=== PATIENT | female | born 1975 ===

== ENCOUNTER 2016-11-07 08:57 | Emergency (ER) | payer OTHER ==
[2016-11-07 09:21] VITALS: BP 127/90; PULSE 88; TEMP 98.4; O2SAT 97
--- NOTE | 2016-11-07 09:28 | C.PDOC ---
History Of Present Illness Pt is a 41 yr old female who is c/o a lump under her right jaw for almost 3 days. No fever. No cough. She did not try any medications for her symptoms. Pt has had similar with lump under the jaw in the past--about 4 months. She has pain in the area when she swallows. On a 1-10 scale, pain is a 7. 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 Time Seen by Provider: 11/07/16 09:17 Chief Complaint (Nursing): ENT Problem Past Medical History Reviewed: Historical Data, Nursing Documentation, Vital Signs Vital Signs: Last Vital Signs Temp 98.4 F 11/07/16 09:02 Pulse 88 11/07/16 09:02 Resp 19 11/07/16 09:02 BP 127/90 11/07/16 09:02 Pulse Ox 97 11/07/16 09:34 - Medical History PMH: HTN, Hyperthyroidism, Hypothyroidism, Migraine Family History: States: Diabetes, Hypertension - Social History Hx Tobacco Use: No Hx Alcohol Use: No Hx Substance Use: No - Immunization History Hx Tetanus Toxoid Vaccination: No Hx Influenza Vaccination: No Hx Pneumococcal Vaccination: No Review Of Systems Except As Marked, All Systems Reviewed And Found Negative. Constitutional: Negative for: Fever Cardiovascular: Negative for: Chest Pain Respiratory: Negative for: Shortness of Breath Gastrointestinal: Negative for: Vomiting, Abdominal Pain Physical Exam - Physical Exam Appears: Well, Non-toxic, No Acute Distress Skin: Normal Color, Warm, Dry Head: Atraumatic, Normacephalic Eye(s): bilateral: Normal Inspection, EOMI Ear(s): Bilateral: Normal Nose: Normal, No Discharge Oral Mucosa: Moist, No Drooling, No Trismus, Other (no exudates to oropharynx, no hot potatoe voice, no enlargement of tonsils) Tongue: Normal Appearing Lips: Normal Appearing Teeth: Normal Dentition Gingiva: Normal Appearing Throat: No Exudate, No Drooling, Other (see oral mucosa section) Neck: Normal Lymphatic: Other (Large, tender right submandibular lymph node under right jaw line) Cardiovascular: Rhythm Regular, No Murmur Respiratory: Normal Breath Sounds Gastrointestinal/Abdominal: Normal Exam, Soft, No Tenderness Rectal: Deferred Back: Normal Inspection Extremity: Normal ROM, No Pedal Edema ED Course And Treatment O2 Sat by Pulse Oximetry: 97 Medical Decision Making Medical Decision Making: Initial Impression: Reactive Lymph Node Initial Plan: D/C on abx to see if lymph node resolves Disposition - Disposition Referrals: [facility] [Outside] Disposition: HOME/ ROUTINE Disposition Time: 09:54 Condition: FAIR Additional Instructions: Ms. White, thank you for letting us take care of you today. Return to the ER if your symptoms worsen, or if any problems. Take the medication listed below as prescribed. Call our [facility] at the phone number listed below to make an appointment to be re-evaluated next week. Prescriptions: Clindamycin [Cleocin] 1 tab PO QID #28 cap Instructions: Lymphadenopathy (ED) Forms: [employer] (Scottish) Print Language: LEBANESE - POA Present On Arrival: None - Clinical Impression Clinical Impression: Reactive lymphadenopathy
[2016-11-07 09:59] VITALS: RESP 18
== END 2016-11-07 10:18 | disposition home or self-care (01) ==
LOC: C.ER 08:57
DX: R59.1 Generalized enlarged lymph nodes (principal)

== ENCOUNTER 2016-11-30 08:50 | Emergency (ER) | payer OTHER ==
[2016-11-30 08:50] VITALS: BMI 24.7
[2016-11-30] MEDS ORDERED: Albuterol-Ipratrop 3 mg / 0.5 (3 ml) UD ONE (08:59)
[2016-11-30] MEDS ORDERED: Albuterol-Ipratrop 3 mg / 0.5 (3 ml) UD INH STA (09:06)
[2016-11-30 10:17] VITALS: RESP 18
[2016-11-30] MEDS ORDERED: Sodium Chloride 0.9% 500 ML IV STA (10:42)
[2016-11-30] MEDS ORDERED: Sodium Chloride 0.9% 500 ML IV ONE (11:09)
[2016-11-30 11:15] LABS: BASO # 0.1 K/uL (0.0-0.2); BASO % 0.9 % (0.0-2.0); EOS # 0.6 K/uL (0.0-0.7); EOS % 8.8 % (0.0-4.0); HEMATOCRIT 37.2 % (34.0-47.0); LYMPH # 2.4 K/uL (1.0-4.3); LYMPH % 37.7 % (20.0-40.0); MEAN CELL VOLUME 82.7 fL (81.0-99.0); MEAN CORPUSCULAR HEMOGLOBIN 28.1 pg (27.0-31.0); MEAN PLATELET VOLUME 9.9 fL (7.2-11.7); MONO # 0.3 K/uL (0.0-0.8); MONO % 5.3 % (0.0-10.0); RED CELL DISTRIBUTION WIDTH 13.8 % (11.5-14.5); WHITE BLOOD COUNT 6.4 K/uL (4.8-10.8)
[2016-11-30 11:24] LABS: CHLORIDE 104 mmol/L (98-107); SODIUM 140 mmol/L (132-148)
[2016-11-30 11:25] LABS: POTASSIUM 4.1 mmol/L (3.6-5.2)
[2016-11-30 11:27] LABS: ALB/GLOB RATIO 1.1 (1.0-2.1); ALKALINE PHOSPHATASE 66 U/L (38-126); ALT/SGPT 37 U/L (9-52); AST/SGOT 25 U/L (14-36); BLOOD UREA NITROGEN 9 mg/dL (7-17); CALCIUM 9.3 mg/dl (8.6-10.4); CARBON DIOXIDE 24 mmol/L (22-30); GFR AFRICAN-AMERICAN > 60; GLUCOSE,RANDOM 92 mg/dL (65-105); TOTAL PROTEIN 7.7 g/dL (6.3-8.3)
--- NOTE | 2016-11-30 11:33 | RAD ---
PROCEDURE: CHEST RADIOGRAPH, 1 VIEW HISTORY: SOB COMPARISON: Comparison made with chest radiograph 05/19/2016 FINDINGS: LUNGS: No acute infiltrates. PLEURA: No pneumothorax or pleural fluid seen. CARDIOVASCULAR: Normal. OSSEOUS STRUCTURES: No significant abnormalities. VISUALIZED UPPER ABDOMEN: Normal. OTHER FINDINGS: None. IMPRESSION: No acute infiltrates.
[2016-11-30 11:41] LABS: INR 1.1; PARTIAL THROMBOPLASTIN TIME 30 SECONDS (21-34)
[2016-11-30 11:57] LABS: THYROID STIMULATING HORMONE 2.13 mIU/L (0.46-4.68)
[2016-11-30 12:42] LABS: RBC URINE 1 /hpf (0-3); URINE BACTERIA RARE (<OCC); URINE BILIRUBIN NEGATIVE (NEGATIVE); URINE BLOOD NEGATIVE (NEGATIVE); URINE COLOR Straw (YELLOW); URINE GLUCOSE (UA) NORMAL (Normal); URINE KETONE NEGATIVE (NEGATIVE); URINE LEUKOCYTE ESTERASE NEG Leu/uL (Negative); URINE PROTEIN NEGATIVE (NEGATIVE); URINE UROBILINOGEN NORMAL mg/dL (0.2-1.0); WBC URINE 1 /hpf (0-5)
--- NOTE | 2016-11-30 13:28 | C.PDOC ---
History Of Present Illness 41 y/o female with hx of Asthma and Thyroid problems presents to ED with complaints of sob since yesterday. Patient denies fever, chills, chest pain, palpitations, n/v/d or any other complaints at this time. Time Seen by Provider: 11/30/16 09:26 Chief Complaint (Nursing): Shortness Of Breath History Per: Patient History/Exam Limitations: no limitations Onset/Duration Of Symptoms: Days Current Symptoms Are (Timing): Still Present Past Medical History Reviewed: Historical Data, Nursing Documentation, Vital Signs Vital Signs: Last Vital Signs Temp 97.7 F 11/30/16 13:53 Pulse 90 11/30/16 13:53 Resp 18 11/30/16 13:53 BP 125/85 11/30/16 13:53 Pulse Ox 99 11/30/16 13:53 - Medical History PMH: HTN, Hyperthyroidism, Hypothyroidism, Migraine Family History: States: Unknown Family Hx, Diabetes, Hypertension - Social History Hx Tobacco Use: No Hx Alcohol Use: No Hx Substance Use: No - Immunization History Hx Tetanus Toxoid Vaccination: No Hx Influenza Vaccination: No Hx Pneumococcal Vaccination: No Review Of Systems Except As Marked, All Systems Reviewed And Found Negative. Constitutional: Negative for: Fever, Chills Cardiovascular: Negative for: Chest Pain, Palpitations Respiratory: Positive for: Shortness of Breath. Negative for: Cough Gastrointestinal: Negative for: Nausea, Vomiting, Diarrhea Skin: Negative for: Rash Physical Exam - Physical Exam Appears: Non-toxic, No Acute Distress Skin: Normal Color, Warm, No Rash Head: Atraumatic, Normacephalic Eye(s): bilateral: Normal Inspection Oral Mucosa: Moist Neck: Normal ROM, Supple Chest: Symmetrical Cardiovascular: Rhythm Regular Respiratory: Normal Breath Sounds, No Rales, No Rhonchi, No Wheezing Gastrointestinal/Abdominal: Soft, No Tenderness, No Guarding, No Rebound Extremity: Normal ROM, Capillary Refill (<2 seconds) Neurological/Psych: Oriented x3, Normal Speech ED Course And Treatment - Laboratory Results Result Diagrams: 11/30/16 11:10 11/30/16 11:10 O2 Sat by Pulse Oximetry: 96 (RA) Pulse Ox Interpretation: Normal Medical Decision Making Medical Decision Making: Plan: * Patient was given Duoneb by triage nurse. No wheezing appreciated on my exam. Work up was totally negative. Patient feels better. She is stable to be d/c home with PMD/clinic follow up. Disposition - Disposition Referrals: [facility] [Outside] [facility] [Outside] [facility] [Outside] Disposition: HOME/ ROUTINE Disposition Time: 13:32 Condition: IMPROVED Additional Instructions: Follow up with PMD within 1-2 days. Return to ED if feel worse. Prescriptions: predniSONE [predniSONE Tab] 2 tab PO DAILY #8 tab Albuterol HFA [Ventolin HFA 90 mcg/actuation (8 g)] 1 puff IH .Q4-6H #1 inhaler Instructions: Asthma (ED), Dyspnea (ED) Forms: [employer] [facility] (Canadian), Work Excuse - Clinical Impression Clinical Impression: Dyspnea - Scribe Statement The provider has reviewed the documentation as recorded by the Scribjane Keen All medical record entries made by the Scribe were at my direction and personally dictated by me. I have reviewed the chart and agree that the record accurately reflects my personal performance of the history, physical exam, medical decision making, and the department course for this patient. I have also personally directed, reviewed, and agree with the discharge instructions and disposition.
--- NOTE | 2016-11-30 13:31 | C.PDOC ---
Time Seen by Provider: 11/30/16 09:26 Chief Complaint (Nursing): Shortness Of Breath Past Medical History Vital Signs: Last Vital Signs Temp 98.1 F 11/30/16 08:56 Pulse 105 H 11/30/16 08:56 Resp 18 11/30/16 09:45 BP 111/79 11/30/16 08:56 Pulse Ox 96 11/30/16 09:45 - Medical History PMH: HTN, Hyperthyroidism, Hypothyroidism, Migraine Family History: States: Unknown Family Hx, Diabetes, Hypertension - Social History Hx Tobacco Use: No Hx Alcohol Use: No Hx Substance Use: No - Immunization History Hx Tetanus Toxoid Vaccination: No Hx Influenza Vaccination: No Hx Pneumococcal Vaccination: No ED Course And Treatment - Laboratory Results Result Diagrams: 11/30/16 11:10 11/30/16 11:10 O2 Sat by Pulse Oximetry: 96 Disposition - Disposition Referrals: [facility] [Outside] [employer] [facility] [Outside] [facility] [Outside] Disposition: HOME/ ROUTINE Disposition Time: 13:28 Condition: STABLE Additional Instructions: Follow up with PMD within 1-2 days. Return to ED if feel worse. Prescriptions: predniSONE [predniSONE Tab] 2 tab PO DAILY #8 tab Albuterol HFA [Ventolin HFA 90 mcg/actuation (8 g)] 1 puff IH .Q4-6H #1 inhaler Instructions: Asthma (ED), Dyspnea (ED) Forms: [employer] (Spanish), Work Excuse - Clinical Impression Clinical Impression: Dyspnea
[2016-11-30 13:53] VITALS: BP 125/85; PULSE 90; TEMP 97.7
[2016-11-30 15:09] VITALS: O2SAT 96
== END 2016-11-30 13:53 | disposition home or self-care (01) ==
LOC: C.ER 08:50
DX: R06.00 Dyspnea, unspecified (principal)
CPT/HCPCS: 71010; 80053; 81001; 82550; 82553; 84443; 84484; 85025; 85378; 85610; 85730; 99284; J7040

== ENCOUNTER 2018-07-13 15:41 | Outpatient (CLI) | payer OTHER | END 2018-07-13 15:42 | disposition home or self-care (01) | LOC: C.MAMMO 15:41 | DX: Z12.31 Encounter for screening mammogram for malignant neoplasm of breast (principal) ==